=== PATIENT | female | born 1980 | race Caucasian/White ===

== ENCOUNTER → 2019-08-16 | Outpatient (REF) | payer OTHER ==
[~2019-08-16] MED LIST: DOCU5LIQ PO; FERR325T3 PO; IBUP100S44 PO; IBUP80TA PO; OXYC1TAB23 PO; STUATAB PO
[2019-08-16 19:47] LABS: APPEARANCE, URINE CLEAR (CLEAR); BACTERIA, URINE AUTO 1+ (NEGATIVE); BILIRUBIN, URINE AUTO NEGATIVE (NEGATIVE); BLOOD, URINE BLOOD NEGATIVE (NEGATIVE); COLOR, URINE AMBER (YELLOW); GLUCOSE, URINE (UA) AUTO NEGATIVE (NEGATIVE); KETONE, URINE AUTO NEGATIVE (NEGATIVE); LEUKOCYTE ESTERASE, URINE AUTO NEGATIVE (NEGATIVE); MUCUS, URINE SMALL (NEGATIVE); NITRITE, URINE AUTO POSITIVE (NEGATIVE); PROTEIN, URINE AUTO NEGATIVE (NEGATIVE); RBC, URINE AUTO 2 /HPF (0-3); SPECIFIC GRAVITY URINE AUTO 1.021 (1.002-1.035); SQUAMOUS EPITHELIAL CELL UR AU 4 /HPF (0-6); WBC, URINE AUTO 7 /HPF (0-3)
== END ==
LOC: M LAB REF 19:16
PROVIDERS: ATTEND Physician Assistant
DX: N39.0 Urinary tract infection, site not specified (principal)

== ENCOUNTER 2024-02-03 13:22 | Emergency (ER) | payer OTHER ==
[~2024-02-03] VITALS: Ht 177.8 cm; Wt 99.7 kg
[2024-02-03 14:27] LABS: BASO # 0.1 10^3/uL (0.0-0.2); BASO % 1.1 % (0.0-1.0); EOS # 0.2 10^3/uL (0.0-0.5); HEMATOCRIT 36.7 % (36.0-47.0); HEMOGLOBIN 11.8 g/dl (12.0-15.5); LYMPH # 2.1 10^3/uL (1.5-5.0); MEAN CORPUSCULAR HEMOGLOBIN 29.1 pg (27.0-33.0); MEAN CORPUSCULAR HGB CONC 32.2 g/dl (32.0-36.5); MEAN CORPUSCULAR VOLUME 90.4 fl (80.0-96.0); MONO # 0.5 10^3/uL (0.0-0.8); MONO % 6.5 % (2.0-8.0); NEUTROPHILS # 5.1 10^3/uL (1.5-8.5); NEUTROPHILS % 64.2 % (36.0-66.0); PLATELET COUNT, AUTOMATED 353 10^3/uL (150-450); RED BLOOD COUNT 4.06 10^6/uL (4.00-5.40)
[2024-02-03 14:40] LABS: INR 0.95; PARTIAL THROMBOPLASTIN TIME 25.4 SECONDS (24.8-34.2); PROTHROMBIN TIME 12.4 SECONDS (12.5-14.5)
[2024-02-03 14:52] LABS: CK-MB VALUE MASS < 1.0 NG/ML (<3.6); LIPASE 27 U/L (12-53)
[2024-02-03 14:53] LABS: CPK CREATINE PHOSPHOKINASE 62 U/L (34-145); MB/CK RELATIVE INDEX 1.61 (< OR =4)
[2024-02-03 14:54] LABS: ALBUMIN 3.9 G/DL (3.2-5.2); ALKALINE PHOSPHATASE 57 U/L (46-116); ALT/SGPT 20 U/L (7.0-40); AST/SGOT 11 U/L (<34); BILIRUBIN,DIRECT 0.1 MG/DL (<0.4); BILIRUBIN,TOTAL 0.4 MG/DL (0.3-1.2); BLOOD UREA NITROGEN 16 MG/DL (9-23); CALCIUM LEVEL 9.5 MG/DL (8.5-10.1); CARBON DIOXIDE LEVEL 26 MMOL/L (20-31); CHLORIDE LEVEL 108 MMOL/L (98-107); CREATININE FOR GFR 0.74 MG/DL (0.55-1.30); GLOMERULAR FILTRATION RATE > 60.0 (>58); GLUCOSE, FASTING 91 MG/DL (60-100); POTASSIUM SERUM 4.4 MMOL/L (3.5-5.1); SODIUM LEVEL 138 MMOL/L (136-145); TOTAL PROTEIN 7.2 G/DL (5.7-8.2)
[2024-02-03 14:57] LABS: HCG, SERUM QUALITATIVE NEGATIVE (NEGATIVE)
[2024-02-03] MEDS ORDERED: GASTROGRAFIN SOLUTION 30ML As Ordered ONE (15:42)
[2024-02-03] MEDS: GASTROGRAFIN SOLUTION 30ML PO SCH (15:53)
[2024-02-03] MEDS ORDERED: ISOVUE-370 76% 100ML VIAL As Ordered ONE (17:13)
[2024-02-03] MEDS ORDERED: OMEP-173 PO (19:53)
[2024-02-03 19:58] VITALS: BP 117/68; TEMP 98.9; O2SAT 100
== END 2024-02-03 20:20 | disposition home or self-care (01) ==
LOC: M ED 13:22
DX: K80.20 Calculus of gallbladder without cholecystitis without obstruction (principal); N83.291 Other ovarian cyst, right side; R19.7 Diarrhea, unspecified
CPT/HCPCS: 36415; 74177; 80048; 80076; 81001; 82550; 82553; 83605; 83690; 84484; 84703; 85025; 85610; 85730; 93005; 99284; Q9967

== ENCOUNTER → 2024-07-06 | Outpatient (REF) | payer OTHER ==
[~2024-07-06] MED LIST changes: +OMEP-173 PO
[2024-07-06 18:37] LABS: APPEARANCE, URINE HAZY (CLEAR); BACTERIA, URINE AUTO 2+ (NEGATIVE); BILIRUBIN, URINE AUTO NEGATIVE (NEGATIVE); BLOOD, URINE BLOOD 3+ (NEGATIVE); COLOR, URINE AMBER (YELLOW); GLUCOSE, URINE (UA) AUTO NEGATIVE (NEGATIVE); KETONE, URINE AUTO NEGATIVE (NEGATIVE); LEUKOCYTE ESTERASE, URINE AUTO 1+ (NEGATIVE); MUCUS, URINE SMALL (NEGATIVE); NITRITE, URINE AUTO POSITIVE (NEGATIVE); PROTEIN, URINE AUTO 1+ mg/dL (NEGATIVE); RBC, URINE AUTO TNTC /HPF (0-3); SPECIFIC GRAVITY URINE AUTO 1.023 (1.002-1.035); SQUAMOUS EPITHELIAL CELL UR AU 1 /HPF (0-6); WBC, URINE AUTO 166 /HPF (0-3)
== END ==
LOC: M LAB REF 17:25
PROVIDERS: ATTEND Physician Assistant Medical
DX: N39.0 Urinary tract infection, site not specified (principal)

== ENCOUNTER → 2024-08-12 | Outpatient (REF) | payer OTHER | LOC: M LABDRWCV 17:04 | PROVIDERS: ATTEND Physician Assistant | DX: C18.0 Malignant neoplasm of cecum (principal) ==

== ENCOUNTER 2024-12-09 12:30 | Inpatient (IN) | payer OTHER ==
[2024-12-08 16:45] VITALS: BP 116/73; TEMP 98.4; O2SAT 99
[2024-12-09] VITALS (7 sets, daily range): BP systolic 134; BP diastolic 70; TEMP 97.9; O2SAT 85–98
[~2024-12-09] VITALS: Ht 177.8 cm; Wt 77.6 kg
[2024-12-09] MEDS ORDERED: SENN1TAB96 PO (18:14)
[2024-12-09] MEDS ORDERED: BRAF75CA PO (18:14)
[2024-12-09] MEDS ORDERED: PROC10TA5 PO (18:14)
[2024-12-09] MEDS ORDERED: ONDA-84 PO (18:14)
[2024-12-09] MEDS ORDERED: GABA-1171 PO (18:14)
[2024-12-09] MEDS ORDERED: OXYC-1 PO (18:14)
[2024-12-09] MEDS ORDERED: ELIQ5TAB PO (18:14)
[2024-12-09] MEDS ORDERED: FENT1PAT25 TOP (18:14)
[2024-12-09] MEDS ORDERED: MULTI VIT GUMMY PO (18:16)
[2024-12-09] MEDS ORDERED: LORA1TAB23 PO (18:16)
[2024-12-09] MEDS ORDERED: [UNRECOGNIZED DRUG - OTHER] PO (18:16)
[2024-12-09] MEDS ORDERED: HOME MED LIST COMPLETE! XX SCH (18:20)
[2024-12-09] MEDS ORDERED: ONDANSETRON 4MG TAB PO PRN (18:35)
[2024-12-09 18:38] LABS: ALT/SGPT 30 U/L (7.0-40); AST/SGOT 38 U/L (<34); CALCIUM LEVEL 8.6 MG/DL (8.5-10.1); CARBON DIOXIDE LEVEL 26 MMOL/L (20-31); CHLORIDE LEVEL 102 MMOL/L (98-107); CREATININE FOR GFR 0.53 MG/DL (0.55-1.30); GLOMERULAR FILTRATION RATE > 90.0 (>58); POTASSIUM SERUM 4.4 MMOL/L (3.5-5.1); SODIUM LEVEL 139 MMOL/L (136-145)
[2024-12-09] MEDS ORDERED: VANCOMYCIN HCL 1,000 MG, VIAL MATE ADAPTER 1 EACH in NS 250 ML IV SCH (18:45)
[2024-12-09] MEDS ORDERED: PIPERACILLIN/TAZOBACTAM SOD 4.5 GM in DEXTROSE 5% (D5W) ADV/MINI-BAG 50 ML IV SCH (18:45)
[2024-12-09 19:27] LABS: PLATELET COUNT, AUTOMATED 219 10^3/uL (150-450)
[2024-12-09] MEDS: LORazepam 0.5 MG TAB PO PRN (20:47)
[2024-12-09] MEDS: GABAPENTIN 100 MG CAP PO SCH (20:47)
[2024-12-09] MEDS: ENCORAFENIB 75 MG PO SCH (20:48)
[2024-12-09] MEDS: SENNOSIDES/DOCUSATE SODIUM 8.6 MG/50MG TAB PO SCH (20:50)
[2024-12-09] MEDS: ENOXAPARIN 80 MG/0.8 ML SYRINGE (J1650 PER 10MG) SC SCH (20:50)
[2024-12-09] MEDS ORDERED: LORazepam 0.5 MG TAB PO SCH (21:00)
[2024-12-09] MEDS ORDERED: APIXABAN 5 MG TAB PO SCH (21:00)
[2024-12-09] MEDS: PROCHLORPERAZINE 5MG TAB PO PRN (21:05)
[2024-12-09] MEDS: MORPHINE 2 MG/ML 1 ML VIAL IV ONE (21:17)
[2024-12-09] MEDS ORDERED: MIRALAX *UNIT DOSE* 17 GM PACKET PO PRN (21:30)
[2024-12-09] MEDS: cefTRIAXone SOD 1 GM in DEXTROSE 5% (D5W) ADV/MINI-BAG 50 ML IV SCH (21:50)
[2024-12-09] MEDS: HYDROMORPHONE HCL 0.5 MG/0.5 ML SYRINGE IV PRN (22:31)
[2024-12-09] MEDS: LR 1,000 ML IV SCH (22:41)
[2024-12-09] MEDS: ATORVASTATIN 20 MG TAB PO SCH (23:52)
[2024-12-10] VITALS (28 sets, daily range): BP systolic 113–128; BP diastolic 54–67; TEMP 97.6–98.4; O2SAT 88–98
[2024-12-10 00:29] LABS: KETONE, URINE AUTO RFX NEGATIVE (NEGATIVE); LEUKOCYTE ESTERASE UR AUTO RFX NEGATIVE (NEGATIVE); MUCUS, URINE RFX SMALL (NEGATIVE); NITRITE, URINE AUTO RFX NEGATIVE (NEGATIVE); RBC, URINE AUTO RFX TNTC /HPF (0-3); SQUAM EPITHELIAL CELL UR AURFX 2 /HPF (0-6); TRANSITIONAL EPITHELIAL AU RFX <1 /HPF
[2024-12-10 02:24] LABS: WBC, URINE AUTO RFX 11 /HPF (0-3)
[2024-12-10 07:33] LABS: PLATELET COUNT, AUTOMATED 225 10^3/uL (150-450)
[2024-12-10 08:02] LABS: CHOLESTEROL LEVEL 173.0 MG/DL (<200); CHOLESTEROL RISK RATIO 5.17 (<5); LDL CHOLESTEROL 120.8 MG/DL (<100); NON-HDL-C 139.6 MG/DL; TRIGLYCERIDES LEVEL 94.0 MG/DL (<150)
[2024-12-10 08:14] LABS: ALT/SGPT 32 U/L (7.0-40); AST/SGOT 35 U/L (<34); CALCIUM LEVEL 8.4 MG/DL (8.5-10.1); CARBON DIOXIDE LEVEL 26 MMOL/L (20-31); CHLORIDE LEVEL 101 MMOL/L (98-107); CREATININE FOR GFR 0.69 MG/DL (0.55-1.30); GLOMERULAR FILTRATION RATE > 90.0 (>58); POTASSIUM SERUM 4.3 MMOL/L (3.5-5.1); SODIUM LEVEL 139 MMOL/L (136-145)
[2024-12-10] MEDS: SENNA 8.6 MG TAB PO SCH (08:56)
[2024-12-10] MEDS ORDERED: ENOXAPARIN 40 MG/0.4 ML SYRINGE (J1650 PER 10MG) SC SCH (09:00)
[2024-12-10 09:23] LABS: MAGNESIUM LEVEL 1.8 MG/DL (1.8-2.4)
[2024-12-10] MEDS: IPRATROPIUM 0.5 MG/ALBUTEROL 2.5 MG INH SOL UD 3 ML NEB PRN (12:01)
[2024-12-10] MEDS ORDERED: ISOVUE-370 76% 100 ML VIAL As Ordered ONE (13:42)
[2024-12-10 13:58] LABS: LDH LACTATE DEHYDROGENASE 488 U/L (120-246)
[2024-12-10] MEDS: ASPIRIN 81 MG CHEWABLE TABLET PO ONE (14:59)
[2024-12-10] MEDS: PIPERACILLIN/TAZOBACTAM SOD 4.5 GM in DEXTROSE 5% (D5W) ADV/MINI-BAG 50 ML IV SCH (18:32)
[2024-12-11] VITALS (30 sets, daily range): BP systolic 116–122; BP diastolic 57–65; TEMP 97–98.3; O2SAT 86–99
[2024-12-11 05:34] LABS: PLATELET COUNT, AUTOMATED 255 10^3/uL (150-450)
[2024-12-11 06:05] LABS: ALT/SGPT 34 U/L (7.0-40); AST/SGOT 38 U/L (<34); CALCIUM LEVEL 8.3 MG/DL (8.5-10.1); CARBON DIOXIDE LEVEL 27 MMOL/L (20-31); CHLORIDE LEVEL 99 MMOL/L (98-107); CREATININE FOR GFR 0.61 MG/DL (0.55-1.30); GLOMERULAR FILTRATION RATE > 90.0 (>58); POTASSIUM SERUM 4.2 MMOL/L (3.5-5.1); SODIUM LEVEL 137 MMOL/L (136-145)
[2024-12-11 07:24] LABS: Estimated Ave Glu(eAG) 4.2 mmol/L
[2024-12-11] MEDS: ASPIRIN 81 MG CHEWABLE TABLET PO SCH (08:10)
[2024-12-11] MEDS ORDERED: FENT1DIS14 TOP (11:13)
[2024-12-11] MEDS ORDERED: FENT100D25 TOP (11:13)
[2024-12-11] MEDS ORDERED: OXYC30TA PO (11:13)
[2024-12-11] MEDS ORDERED: LEVO75TAB PO (13:48)
[2024-12-11] MEDS ORDERED: ASPI81CH33 PO (13:48)
[2024-12-11] MEDS ORDERED: FLUC-1 PO (13:48)
[2024-12-11] MEDS ORDERED: PROT1TAB2 PO (13:48)
[2024-12-11] MEDS ORDERED: ATOR80TA59 PO (13:48)
[2024-12-12] MEDS ORDERED: FENTANYL REMOVAL DOCUMENTATION MISC XX SCH ×2 (21:00)
[2024-12-13 18:00] LABS: FUNGITELL, SERUM < 31 pg/mL (<60)
[2024-12-13] MEDS ORDERED: FENTANYL REMOVAL DOCUMENTATION MISC XX SCH (18:00)
[2024-12-16 17:49] LABS: ASPERGILLUS FLAVUS ABY Negative (Negative); ASPERGILLUS FUMIGATUS ABY Negative (Negative); ASPERGILLUS NIGER ABY Negative (Negative)
== END 2024-12-11 14:57 | disposition home or self-care (01) | DRG 189 ==
LOC: M PCU 16:40
PROVIDERS: ADMIT General Practice; ATTEND Internal Medicine
PROC: B246ZZZ Ultrasonography of Right and Left Heart (ICD-10-PCS; principal; 2024-12-10)
DX: J96.01 Acute respiratory failure with hypoxia (principal); E43 Unspecified severe protein-calorie malnutrition; I63.9 Cerebral infarction, unspecified; C19 Malignant neoplasm of rectosigmoid junction; C79.51 Secondary malignant neoplasm of bone; J90 Pleural effusion, not elsewhere classified; C78.7 Secondary malignant neoplasm of liver and intrahepatic bile duct; C78.00 Secondary malignant neoplasm of unspecified lung; M84.58XA Pathological fracture in neoplastic disease, other specified site, initial encounter for fracture; M54.9 Dorsalgia, unspecified; G89.3 Neoplasm related pain (acute) (chronic); J70.2 Acute drug-induced interstitial lung disorders; K59.03 Drug induced constipation; T40.2X5A Adverse effect of other opioids, initial encounter; R11.0 Nausea; D63.0 Anemia in neoplastic disease; Z66 Do not resuscitate; Z79.01 Long term (current) use of anticoagulants; Z79.899 Other long term (current) drug therapy; Z86.718 Personal history of other venous thrombosis and embolism; Z92.21 Personal history of antineoplastic chemotherapy

== ENCOUNTER 2024-12-15 06:45 | Observation (INO) | payer OTHER ==
[~2024-12-15] VITALS: Ht 175.3 cm; Wt 84.1 kg
[~2024-12-15 06:45] MED LIST changes: +ASPI81CH33 PO; +ATOR80TA59 PO; +BRAF75CA PO; +ELIQ5TAB PO; +FENT100D25 TOP; +FENT1DIS14 TOP; +FENT1PAT25 TOP; +FLUC-1 PO; +GABA-1171 PO; +LEVO75TAB PO; +LORA1TAB23 PO; +MULTI VIT GUMMY PO; +ONDA-84 PO; +OXYC-1 PO; +OXYC30TA PO; +PROC10TA5 PO; +PROT1TAB2 PO; +SENN1TAB96 PO; +[UNRECOGNIZED DRUG - OTHER] PO
[2024-12-15] MEDS: MORPHINE 4 MG/ML 1 ML VIAL IV PRN (08:05)
[2024-12-15] MEDS ORDERED: ATOR80TA59 PO (08:41)
[2024-12-15] MEDS ORDERED: FENT1DIS14 TD (08:41)
[2024-12-15] MEDS ORDERED: FLUC-1 PO (08:41)
[2024-12-15] MEDS ORDERED: ASPI81CH33 PO (08:41)
[2024-12-15] MEDS ORDERED: PANT-23 PO (08:41)
[2024-12-15] MEDS ORDERED: FENT100D25 TD (08:41)
[2024-12-15] MEDS ORDERED: LEVO1TAB40 PO (08:41)
[2024-12-15] MEDS ORDERED: OXYC30TA PO (08:41)
[2024-12-15] MEDS ORDERED: HOME MED LIST COMPLETE! XX SCH (08:45)
[2024-12-15] MEDS ORDERED: ACETAMINOPHEN 650 MG SUPP PR PRN (11:00)
[2024-12-15] MEDS ORDERED: ONDANSETRON 4MG 2ML VIAL IV PRN (11:00)
[2024-12-15] MEDS ORDERED: FLEET ENEMA PR PRN (11:00)
[2024-12-15] MEDS: MORPHINE 2 MG/ML 1 ML VIAL IV PRN (11:32)
[2024-12-15 11:52] VITALS: BP 108/73; TEMP 97.3; O2SAT 94
[2024-12-15] MEDS ORDERED: FENTANYL REMOVAL DOCUMENTATION MISC XX SCH (13:00)
[2024-12-15] MEDS: HYDROmorphone 2 MG TAB PO SCH (14:32)
[2024-12-15] MEDS: GABAPENTIN 100 MG CAP PO SCH (15:55)
[2024-12-15] MEDS: LORazepam 0.5 MG TAB PO SCH (15:55)
[2024-12-15] MEDS: PROCHLORPERAZINE 5MG TAB PO PRN (15:55)
[2024-12-15] MEDS ORDERED: HYDROMORPHONE HCL 0.5 MG/0.5 ML SYRINGE IV PRN (17:15)
[2024-12-15] MEDS: HYDROMORPHONE HCL 0.5 MG/0.5 ML SYRINGE IV PRN (17:26)
[2024-12-15] MEDS: SENNOSIDES/DOCUSATE SODIUM 8.6 MG/50MG TAB PO SCH (19:49)
[2024-12-15] MEDS: RAMELTEON 8 MG TAB PO PRN (19:50)
[2024-12-16] MEDS: SCOPOLAMINE 1MG TRANSDERMAL PATCH TOP PRN (04:47)
[2024-12-16] MEDS ORDERED: HYDROMORPHONE HCL 0.5 MG/0.5 ML SYRINGE IV PRN ×2 (04:55→14:55)
[2024-12-16] MEDS: ACETAMINOPHEN 500 MG TAB PO SCH (05:17)
[2024-12-16] MEDS: HYDROmorphone HCL 2 MG/ML 1 ML VIAL IV PRN ×2 (05:21→17:17)
[2024-12-16] MEDS ORDERED: GLYCOPYRROLATE INJ 0.2 MG/ML 2 ML VIAL IV PRN (10:00)
[2024-12-16] MEDS: ONDANSETRON 4MG 2ML VIAL IV SCH (10:25)
[2024-12-16] MEDS: HYDROMORPHONE HCL 0.5 MG/0.5 ML SYRINGE IV PRN (10:28)
[2024-12-16] MEDS ORDERED: MORPHINE SULFATE INJ 100 MG in NS 90 ML IV SCH ×2 (11:00→14:53)
[2024-12-16] MEDS: MORPHINE SULFATE INJ 100 MG in NS 90 ML IV SCH ×2 (11:54→22:07)
[2024-12-16] MEDS: HYDROmorphone HCL 2 MG/ML 1 ML VIAL IV ONE (12:01)
[2024-12-16] MEDS: NS (Normal Saline) 0.9% 1,000 ML IV SCH (12:17)
[2024-12-16] MEDS ORDERED: KETAMINE HCL 500 MG in NS 495 ML IV SCH (15:00)
[2024-12-16] MEDS: LIDOCAINE 5% PATCH TD SCH (15:40)
[2024-12-16] MEDS: DICLOFENAC EPOLAMINE 1.3% PATCH TOP SCH (15:44)
[2024-12-16] MEDS ORDERED: PHENobarbital 65MG/ML 1ML VIAL IV SCH (16:00)
[2024-12-16] MEDS ORDERED: PHENobarbital 65MG/ML 1ML VIAL IV PRN (16:00)
[2024-12-16] MEDS: PHENobarbital 65MG/ML 1ML VIAL IV SCH (16:39)
[2024-12-17] MEDS: FENTANYL REMOVAL DOCUMENTATION MISC XX SCH (09:01)
== END 2024-12-17 09:06 | disposition expired ==
LOC: EDUNIT# 06:45 → M ED 06:45 → EDBD 06:45 → M ED INP 06:46 → INTOOBSV 10:56 → UNDOADMIN 10:56 → M MSPAV 11:41
PROVIDERS: ADMIT Student in an Organized Health Care Education/Training Program; ATTEND General Practice
DX: C18.6 Malignant neoplasm of descending colon (principal); Z51.5 Encounter for palliative care; K59.09 Other constipation; G89.3 Neoplasm related pain (acute) (chronic); J96.21 Acute and chronic respiratory failure with hypoxia; Z79.01 Long term (current) use of anticoagulants; Z79.899 Other long term (current) drug therapy
CPT/HCPCS: 71045; 96361; 96374; 96375; 96376; 99285; J1171; J2060; J2405; J2560